=== PATIENT | male | born 1990 | race Caucasian/White ===

== ENCOUNTER 2018-07-07 18:20 | Emergency (ER) | payer OTHER ==
[~2018-07-07] VITALS: Ht 190.5 cm; Wt 104.3 kg
[~2018-07-07 18:20] MED LIST: ACETAMINOPHEN-1 EAC1 PO; ADDERALL 10 MG10 MG; HYDROCODONE-AP1 EAC6 PO; IBUPROFEN 800800 MG PO; TORADOL 10 MG T10 MG PO; TRAZODONE HCL100 MG PO; ZOFRAN ODT4 MG PO
[2018-07-07 18:32] VITALS: BP 150/82
[2018-07-07] MEDS ORDERED: NORCO 5-325 TA1 EAC1 PO (18:35)
[2018-07-07] MEDS ORDERED: PENICILLIN VK500 MG PO (18:35)
== END 2018-07-07 18:40 | disposition home or self-care (01) ==
LOC: M.ERS 18:20
DX: S02.5XXA Fracture of tooth (traumatic), initial encounter for closed fracture (principal); F17.210 Nicotine dependence, cigarettes, uncomplicated; X58.XXXA Exposure to other specified factors, initial encounter; Y93.89 Activity, other specified; Y92.89 Other specified places as the place of occurrence of the external cause; Y99.8 Other external cause status

== ENCOUNTER 2018-07-17 10:08 | Emergency (ER) | payer OTHER ==
[~2018-07-17] VITALS: Ht 193 cm; Wt 106.6 kg
[~2018-07-17 10:08] MED LIST changes: +NORCO 5-325 TA1 EAC1 PO; +PENICILLIN VK500 MG PO
[2018-07-17] MEDS ORDERED: AUGMENTIN 875-1 EACH PO (11:18)
[2018-07-17 11:23] VITALS: BP 161/99
== END 2018-07-17 11:23 | disposition home or self-care (01) ==
LOC: M.ERS 10:08
DX: J40 Bronchitis, not specified as acute or chronic (principal); H92.02 Otalgia, left ear

== ENCOUNTER 2019-01-21 20:33 | Emergency (ER) | payer OTHER ==
[~2019-01-21] VITALS: Ht 193 cm; Wt 106.6 kg
[~2019-01-21 20:33] MED LIST changes: +AUGMENTIN 875-1 EACH PO
[2019-01-21] MEDS ORDERED: NAPROSYN500 M1 PO (21:14)
[2019-01-21] MEDS ORDERED: AMOXICILLIN500 M1 PO (21:14)
[2019-01-21 21:25] VITALS: BP 142/88
== END 2019-01-21 21:25 | disposition home or self-care (01) ==
LOC: M.ERS 20:33
DX: K08.89 Other specified disorders of teeth and supporting structures (principal); R03.0 Elevated blood-pressure reading, without diagnosis of hypertension; F17.210 Nicotine dependence, cigarettes, uncomplicated; Z88.6 Allergy status to analgesic agent